=== PATIENT | female | born 1980 | race Caucasian/White ===

== ENCOUNTER 2016-10-13 08:53 | Emergency (ER) | payer OTHER ==
[~2016-10-13] VITALS: Ht 160 cm; Wt 62.0 kg
[~2016-10-13 08:53] MED LIST: BOTU100P IM; MIRA50TA PO; TOPI200 PO; [UNRECOGNIZED DRUG - CODE] PO
[2016-10-13 08:56] VITALS: BP 147/103; PULSE 106; RESP 16; TEMP 97.5; O2SAT 97
--- NOTE | 2016-10-13 09:11 | PD ---
HPI Chief Complaint: Flank/Kidney Pain Time Seen by Provider: 09:01 Travel History International Travel<30 days: No Contact w/Intl Traveler<30days: No Traveled to known affect area: No History of Present Illness HPI This is a 36-year-old female who has a history of recurrent urinary tract infections who presents to the emergency department with 4 days of dysuria, frequency, urgency and urinary hesitancy, constant, moderate severity associated with left-sided dull back pain. She also feels nauseous like she is going to vomit. She says she has vomited several times through the weekend. She took 3 days of ciprofloxacin and then switched to 2 days of doxycycline after seeing an urgent care on Thursday. None of this has been helping. She follows with Dr. Tavera for chronic urinary tract infections. She reports she' s never had kidney stones before. PFSH Past Medical History Hx Anticoagulant Therapy: No Diabetes: No GERD: Yes Genitourinary: Yes (interstitial cystitis) Immunizations Current: Yes Migraines: Yes ?: Not Ovarian Cysts: Yes Tubal Ligation: Yes Past Surgical History Appendectomy: Yes Cholecystectomy: Yes Gynecologic Surgery: Yes (uterine ablation) Neurologic Surgery: Yes (C3-C4 spinal fusion) Tonsillectomy: Yes (and adenoids) Other Surgery: Yes (right inguinal hernia repair, umbilical hernia repair, breast augmentation) Social History Alcohol Use: Yes (occ) Tobacco Use: No (never) Substance Use: No Allergies-Medications (Allergen,Severity, Reaction): Coded Allergies: Diflucan (Verified Allergy, Severe, throat swells, 10/13/16) Reported Meds & Prescriptions Reported Meds & Active Scripts Active Reported Azo Cranberry (Cranberry-Vitamin C-Probiotic) 250-30 Mg Tab Unknown Dose PO BID Doxycycline (Doxycycline (Monohydrate)) 150 Mg Cap 500 Mg PO BID Uribel (Lecgnhqngub-Ykyds-Kynwoiedp Blue) 1 Cap 118 Mg PO DAILY Amerge (Naratriptan HCl) 2.5 Mg Tab 2.5 Mg PO DIRECTED PRN May be repeated once after 4 hours, for a maximum of 5 mg in a 24-hour period. Topamax (Topiramate) 200 Mg Tab 200 Mg PO BID Botox Inj (Onabotulinumtoxina) 100 Unit Inj Unknown Dose I-DERMAL [id number] Review of Systems Except as stated in HPI: all other systems reviewed are Neg Physical Exam Narrative GENERAL:Well appearing, no acute distress SKIN: Focused skin assessment warm and dry. HEAD: Atraumatic. Normocephalic. EYES: Pupils equal and round. No injection or drainage. ENT: Moist mucous membranes NECK: Trachea midline. CARDIOVASCULAR: Regular rate and rhythm. No murmur appreciated. RESPIRATORY: Clear to auscultation. Breath sounds equal bilaterally. GASTROINTESTINAL: Abdomen soft, tender to palpation in the left upper quadrant and left lower quadrants : Left CVA tenderness MUSCULOSKELETAL: No obvious deformities. NEUROLOGICAL: Awake and alert. No obvious cranial nerve deficits. Moving all extremities. PSYCHIATRIC: Appropriate mood and affect; insight and judgment normal. Data Data Last Documented VS Vital Signs Date Time Temp Pulse Resp B/P Pulse Ox O2 Delivery O2 Flow Rate FiO2 10/13/16 10:00 16 10/13/16 08:56 97.5 106 147/103 97 Orders Complete Blood Count With Diff (10/13/16 09:08) Comprehensive Metabolic Panel (10/13/16 09:08) ^ Insert Iv (10/13/16 09:08) Urinalysis - C+S If Indicated (10/13/16 09:08) Sodium Chlor 0.9% 1000 Ml Inj (Ns 1000 M (10/13/16 09:15) Ketorolac Inj (Toradol Inj) (10/13/16 09:15) Ondansetron Inj (Zofran Inj) (10/13/16 09:15) Ed Urine Pregnancytest Poc (10/13/16 09:09) Lipase (10/13/16 09:25) Acetaminophen (Tylenol) (10/13/16 10:15) Ondansetron Inj (Zofran Inj) (10/13/16 10:15) Urine Culture (10/13/16 09:15) Ceftriaxone Inj (Rocephin Inj) (10/13/16 11:00) Labs Laboratory Tests Test 10/13/16 10/13/16 09:15 09:25 Urine Collection Type CLEAN CATCH Urine Color ORANGE Urine Turbidity CLOUDY Urine pH 6.5 Urine Specific [place] 1.024 Urine Protein 300 OR GREATER mg/dL Urine Glucose (UA) 500 mg/dL Urine Ketones TRACE mg/dL Urine Occult Blood TRACE Urine Nitrite POS Urine Bilirubin NEG Urine Leukocyte Esterase MOD Urine WBC 6-8 /hpf Urine Squamous Epithelial >8 /hpf Cells Urine Bacteria FEW /hpf Microscopic Urinalysis Comment CULTURE INDICATED Urine Collection Time 0915 White Blood Count 7.2 TH/MM3 Red Blood Count 4.76 MIL/MM3 Hemoglobin 14.4 GM/DL Hematocrit 43.1 % Mean Corpuscular Volume 90.6 FL Mean Corpuscular Hemoglobin 30.4 PG Mean Corpuscular Hemoglobin 33.5 % Concent Red Cell Distribution Width 12.6 % Platelet Count 255 TH/MM3 Mean Platelet Volume 7.6 FL Neutrophils (%) (Auto) 60.6 % Lymphocytes (%) (Auto) 27.8 % Monocytes (%) (Auto) 9.7 % Eosinophils (%) (Auto) 1.2 % Basophils (%) (Auto) 0.7 % Neutrophils # (Auto) 4.3 TH/MM3 Lymphocytes # (Auto) 2.0 TH/MM3 Monocytes # (Auto) 0.7 TH/MM3 Eosinophils # (Auto) 0.1 TH/MM3 Basophils # (Auto) 0.1 TH/MM3 CBC Comment DIFF FINAL Differential Comment Sodium Level 141 MEQ/L Potassium Level 3.7 MEQ/L Chloride Level 108 MEQ/L Carbon Dioxide Level 24.8 MEQ/L Anion Gap 8 MEQ/L Blood Urea Nitrogen 11 MG/DL Creatinine 0.73 MG/DL Estimat Glomerular Filtration 91 ML/MIN Rate Random Glucose 101 MG/DL Calcium Level 8.8 MG/DL Total Bilirubin 0.4 MG/DL Aspartate Amino Transf 16 U/L (AST/SGOT) Alanine Aminotransferase 28 U/L (ALT/SGPT) Alkaline Phosphatase 59 U/L Total Protein 7.6 GM/DL Albumin 4.2 GM/DL Lipase 209 U/L [facility] Medical Decision Making Medical Screen Exam Complete: Yes Emergency Medical Condition: Yes Interpretation(s) Afebrile, mild tachycardia, hypertensive No leukocytosis Electrolytes are reassuring Lipase is normal Urinalysis: 6-8 white blood cells, few bacteria, positive for nitrites consistent with a urinary tract infection Differential Diagnosis Pyelonephritis, urinary tract infection, nephrolithiasis, sepsis Narrative Course This is a 36-year-old female who presents to the emergency department with left- sided flank pain in the setting of a recently diagnosed urinary tract infection. She was placed on a monitor and an IV was established. Labs are obtained which were all reassuring. Urinalysis demonstrates persistent infection despite treatment with ciprofloxacin and doxycycline. I think the patient should be discharged on Keflex. She was given Toradol and Zofran with IV hydration and her symptoms improved in the emergency Department. I considered kidney stone however patient has had very similar symptoms in the past and has been worked up for kidney stone before per her. I think patient is appropriate for outpatient follow-up with her urologist. Diagnosis Primary Impression: Pyelonephritis Patient Instructions: General Instructions Additional Instructions: If you develop fever, persistent vomiting, back pain, or inability to eat return to the emergency department as your urine infection may have progressed. Complete your antibiotics as prescribed. Stay well hydrated with Gatorade or water. Followup with your primary care physician in 2-3 days if your symptoms have not resolved. Med/Other Pt SpecificInfo: Prescription(s) given Scripts Ondansetron Odt (Zofran Odt)4 Mg Tab4 Mg SL Q6HR PRN (Nausea/Vomiting) #15 TAB Prov:Ester Wright MD 10/13/16 Naproxen 500 Mg [id number] Mg PO BID PRN (PAIN SCALE 4 TO 10) #20 TAB Prov:Ester Wright MD 10/13/16 Cephalexin (Keflex)500 Mg [id number] Mg PO Q12H 7 Days Ref 0 Prov:Ester Wright MD 10/13/16 Disposition: 01 DISCHARGE HOME Condition: Stable Ester Wright MD Oct 13, 2016 09:11
[2016-10-13] MEDS ORDERED: SODIUM CHLOR 0.9% 1000 ML INJ 1,000 ML IV ONE (09:15)
[2016-10-13] MEDS ORDERED: KETOROLAC TROMETHAMINE 30 MG/ML (IVP) VIAL IV PUSH ONE (09:15)
[2016-10-13] MEDS ORDERED: ONDANSETRON HCL 4 MG/2 ML VIAL IV PUSH ONE (09:15)
[2016-10-13 09:39] LABS: AUTOMATED NEUTROPHIL # 4.3 TH/MM3 (1.8-7.7); BASOPHIL # 0.1 TH/MM3 (0-0.2); BASOPHIL % 0.7 % (0.0-2.0); EOSINOPHIL # 0.1 TH/MM3 (0-0.4); EOSINOPHIL % 1.2 % (0.0-4.0); HEMATOCRIT 43.1 % (35.0-46.0); HEMO FLAGS DIFF FINAL; LYMPH % 27.8 % (9.0-44.0); MEAN CELL VOLUME 90.6 FL (80.0-100.0); MEAN CORPUSCULAR HEMOGLOBIN 30.4 PG (27.0-34.0); MEAN CORPUSCULAR HGB CONC 33.5 % (32.0-36.0); MONO % 9.7 % (0.0-8.0); NEUT % 60.6 % (16.0-70.0); PLATELET COUNT 255 TH/MM3 (150-450); RED BLOOD COUNT 4.76 MIL/MM3 (4.00-5.30); RED CELL DISTRIBUTION WIDTH 12.6 % (11.6-17.2); WHITE BLOOD COUNT 7.2 TH/MM3 (4.0-11.0)
[2016-10-13] MEDS ORDERED: AZO-450T PO (09:40)
[2016-10-13] MEDS ORDERED: DOXY150C PO (09:40)
[2016-10-13] MEDS ORDERED: [UNRECOGNIZED DRUG - CODE] PO (09:40)
[2016-10-13] MEDS ORDERED: BOTU100P I-DERMAL (09:40)
[2016-10-13] MEDS ORDERED: URIB118C PO (09:40)
[2016-10-13] MEDS ORDERED: TOPI200 PO (09:40)
[2016-10-13 09:44] LABS: BLOOD, URINE TRACE (NEG); GLUCOSE,URINE 500 mg/dL (NEG); KETONE, URINE TRACE mg/dL (NEG); PH, URINE 6.5 (5.0-8.5)
[2016-10-13 09:49] LABS: NITRITE,URINE POS (NEG)
[2016-10-13 09:55] LABS: CHLORIDE 108 MEQ/L (98-107); POTASSIUM 3.7 MEQ/L (3.5-5.1); SODIUM (NA) 141 MEQ/L (136-145)
[2016-10-13 09:59] LABS: ANION GAP 8 MEQ/L (5-15); BICARBONATE 24.8 MEQ/L (21.0-32.0)
[2016-10-13 10:01] LABS: ALT (GPT) 28 U/L (10-53); AST (GOT) 16 U/L (15-37)
[2016-10-13 10:02] LABS: GLOMERULAR FILTRATION RATE 91 ML/MIN (>89)
[2016-10-13 10:03] LABS: BLOOD UREA NITROGEN 11 MG/DL (7-18)
[2016-10-13 10:04] LABS: ALKALINE PHOSPHATASE 59 U/L (45-117)
[2016-10-13 10:11] LABS: TOTAL BILIRUBIN ADULT 0.4 MG/DL (0.2-1.0)
[2016-10-13] MEDS ORDERED: ONDANSETRON HCL 4 MG/2 ML VIAL IV ONE (10:15)
[2016-10-13] MEDS: ACETAMINOPHEN 500 MG CPLT PO ONE ×2 (10:15→11:22)
[2016-10-13 10:40] LABS: METHOD OF COLLECTION CLEAN CATCH
[2016-10-13 10:42] LABS: URINE COLOR ORANGE (YELLW/STRAW)
[2016-10-13 10:43] LABS: BACTERIA, URINE FEW /hpf; COMMENT (UR) CULTURE INDICATED; CULTURE IF INDICATED CULTURE INDICATED; SQUAMOUS EPITHELIAL CELL URINE >8 /hpf (0-5)
[2016-10-13] MEDS ORDERED: cefTRIAXone INJ 1,000 MG in SODIUM CHLORIDE 0.9% INJ 100 ML IV ONE (11:00)
[2016-10-13] MEDS ORDERED: CEPH-460 PO (11:09)
[2016-10-13] MEDS ORDERED: ZOFR4TAB3 SL (11:10)
[2016-10-13] MEDS ORDERED: NAPR500T PO (11:10)
[2016-10-13 12:20] VITALS: RESP 16
[2016-10-13 12:21] VITALS: BP 120/75
== END 2016-10-13 12:24 | disposition home or self-care (01) ==
LOC: PHED 08:53
DX: N12 Tubulo-interstitial nephritis, not specified as acute or chronic (principal); B37.49 Other urogenital candidiasis
CPT/HCPCS: 80053; 81001; 83690; 84703; 85025; 87086; 96361; 96365; 96375; 96376; 99283; J0696; J1885; J2405; J7030